=== PATIENT | female | born 2005 | race Caucasian/White ===

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

== ENCOUNTER 2024-06-14 17:03 | Emergency (ER) | payer BC ==
[2024-06-14] MEDS ORDERED: Sodium Chloride 0.9% 10 ML Syringe FLUSH PRN (17:28)
[2024-06-14] MEDS: Sodium Chloride 0.9% 1,000 ML IV SCH (17:45)
[2024-06-14] MEDS: Ketorolac 30 MG/ML SDV IVPUSH ONE (17:45)
[2024-06-14] MEDS: Ondansetron 4 MG/2 ML SDV IVPUSH ONE (17:45)
[2024-06-14] MEDS: cefTRIAXone 2 GM Vial IVPUSH ONE (18:03)
[2024-06-14 18:07] LABS: BASOPHILS PERCENT AUTO 0.4 % (0.0-1.0); EOSINOPHILS PERCENT AUTO 0.4 % (0.0-6.0); HEMATOCRIT 37.3 % (37.0-47.0); HEMOGLOBIN 11.7 gm/dl (12.0-16.0); IMMATURE GRAN ABSOLUTE AUTO 0.01 K/mm3 (0.00-0.05); IMMATURE GRAN PERCENT AUTO 0.1 % (0.0-0.4); LYMPHOCYTES PERCENT AUTO 14.7 % (24.0-44.0); MEAN CORPUSCULAR HEMOGLOBIN 23.6 pg (28.0-32.0); MEAN CORPUSCULAR HGB CONC 31.4 g/dl (32.0-36.0); MEAN CORPUSCULAR VOLUME 75.4 fl (83.0-99.0); MEAN PLATELET VOLUME 9.4 fl (9.4-12.3); MONOCYTES PERCENT AUTO 14.3 % (0.0-8.0); NEUTROPHILS ABSOLUTE AUTO 4.7 K/mm3 (1.8-7.7); NEUTROPHILS PERCENT AUTO 70.1 % (41.0-71.0); PLATELET COUNT,PLT 267 K/mm3 (150-400); RED BLOOD CELL COUNT 4.95 M/mm3 (4.10-5.30); WHITE BLOOD CELL COUNT,WBC 6.78 K/mm3 (3.9-11.3)
[2024-06-14 19:08] LABS: A/G RATIO 0.8 (1-2); ALBUMIN 3.5 g/dl (3.4-5.0); ANION GAP 14.1 (5-15); BILIRUBIN TOTAL 0.3 mg/dL (0.2-1.0); BUN/CREATININE RATIO 11.4 (14-18); C-REACTIVE PROTEIN 7.47 mg/dL (<0.30); CALCIUM 8.6 mg/dL (8.5-10.1); CREATININE 0.7 mg/dL (0.55-1.02); EST CRCL DRUG DOSING (CG) 109.78 mL/min; POTASSIUM,K 4.1 mEq/L (3.5-5.1); PROTEIN TOTAL,TP 8.1 g/dl (6.4-8.2)
[2024-06-14 19:42] VITALS: PULSE 84
[2024-06-14 20:07] VITALS: BP 102/66
== END 2024-06-14 20:20 | disposition home or self-care (01) ==
LOC: JD.ED 17:03
DX: J18.9 Pneumonia, unspecified organism (principal); E86.0 Dehydration; Z79.899 Other long term (current) drug therapy
CPT/HCPCS: 36415; 71045; 80053; 85025; 86140; 87428; 87651; 96361; 96374; 96375; 99285; J0696; J1885; J2405; J7030; 99284

== ENCOUNTER 2024-10-12 18:31 | Emergency (ER) | payer BC ==
[2024-10-12] MEDS ORDERED: Sodium Chloride 0.9% 10 ML Syringe FLUSH PRN (18:36)
[2024-10-12] MEDS: Ondansetron 4 MG/2 ML SDV IVPUSH ONE (18:46)
[2024-10-12 19:08] LABS: BASOPHILS ABSOLUTE AUTO 0.0 K/mm3 (0.0-0.2); BASOPHILS PERCENT AUTO 0.5 % (0.0-1.0); EOSINOPHILS ABSOLUTE AUTO 0.3 K/mm3 (0.0-0.4); EOSINOPHILS PERCENT AUTO 3.4 % (0.0-6.0); IMMATURE GRAN ABSOLUTE AUTO 0.02 K/mm3 (0.00-0.05); IMMATURE GRAN PERCENT AUTO 0.3 % (0.0-0.4); LYMPHOCYTES ABSOLUTE AUTO 2.6 K/mm3 (1.0-4.8); LYMPHOCYTES PERCENT AUTO 34.6 % (24.0-44.0); MEAN PLATELET VOLUME 9.5 fl (9.4-12.3); MONOCYTES ABSOLUTE AUTO 0.8 K/mm3 (0.0-0.8); MONOCYTES PERCENT AUTO 10.2 % (0.0-8.0); NEUTROPHILS ABSOLUTE AUTO 3.8 K/mm3 (1.8-7.7); NEUTROPHILS PERCENT AUTO 51.0 % (41.0-71.0); NRBC ABSOLUTE 0.00 (0.00-0.02); NRBC PERCENT 0.0 % (0.0-0.2); PLATELET COUNT,PLT 319 K/mm3 (150-400); RED BLOOD CELL COUNT 4.98 M/mm3 (4.10-5.30); WHITE BLOOD CELL COUNT,WBC 7.54 K/mm3 (3.9-11.3)
[2024-10-12 19:14] LABS: INR 1.06
[2024-10-12 19:15] LABS: PTT,PARTIAL THROMBOPLSTIN TIME 29.3 SECONDS (21.7-31.4)
[2024-10-12 19:24] LABS: A/G RATIO 1.1 (1-2); ALANINE AMINOTRANSFERASE,ALT 18 U/L (14-59); ASPARTATE AMNIOTRANSFERASE,AST 21 U/L (15-37); BILIRUBIN TOTAL 0.3 mg/dL (0.2-1.0); BLOOD UREA NITROGEN,BUN 6 mg/dL (7-18); CARBON DIOXIDE,CO2 23 mEq/L (21-32); CHLORIDE,CL 104 mEq/L (98-107); CREATININE 0.6 mg/dL (0.55-1.02); EST CRCL DRUG DOSING (CG) 144.23 mL/min; ESTIMATED GFR 131 mL/min (>60); GLUCOSE RANDOM 86 mg/dL (70-99); POTASSIUM,K 3.1 mEq/L (3.5-5.1); PROTEIN TOTAL,TP 7.9 g/dl (6.4-8.2); SODIUM,NA 140 mEq/L (136-145); TROPONIN I HIGH SENSITIVITY 4 pg/mL (<=51)
[2024-10-12 19:26] LABS: ETHANOL BLOOD MEDICAL 0.00 gm% (0.00)
[2024-10-12 20:11] LABS: IRON,FE 17 ug/dL (50-170)
[2024-10-12 20:14] LABS: APPEARANCE,URINE CLEAR (Clear); GLUCOSE,URINE NEGATIVE (Negative); OCCULT BLOOD,URINE NEGATIVE (Negative)
[2024-10-12 20:21] LABS: BUPRENORPHINE SCREEN,URINE NEGATIVE (CUTOFF=10); METHADONE SCREEN, URINE NEGATIVE (CUTOFF=200); METHAMPHETAMINES SCREEN, URINE NEGATIVE (CUTOFF=500); OXYCODONE SCREEN,URINE NEGATIVE (CUT0FF=100); THC SCREEN,URINE 20 NG/ML NEGATIVE (CUTOFF=50)
[2024-10-12] MEDS: Sodium Chloride 0.9% 10 ML Syringe FLUSH ONE (20:25)
[2024-10-12] MEDS: Iopamidol 612 MG/ML 100 ML Bottle IVPUSH ONE (20:25)
[2024-10-12 20:39] LABS: AMPHETAMINES SCREEN, URINE NEGATIVE (CUTOFF=500); EPITHELIAL CELLS,URINE 0-5 /hpf (0-5)
[2024-10-12] MEDS: Potassium Bicarbonate/Cit Ac 20 MEQ Effervescent Tab PO ONE (21:14)
[2024-10-12] MEDS: Lactated Ringers 1,000 ML IV ONE (21:42)
[2024-10-12] MEDS ORDERED: Naloxone 0.4 MG/ML SDV IVPUSH PRN (22:31)
[2024-10-12] MEDS: LORazepam 2 MG/ML SDV IVPUSH ONE (23:59)
[2024-10-13 00:24] VITALS: BP 104/64; PULSE 79
== END 2024-10-13 | disposition home or self-care (01) ==
LOC: JD.ED 18:31
DX: T67.01XA Heatstroke and sunstroke, initial encounter (principal); E86.0 Dehydration; Z79.899 Other long term (current) drug therapy
CPT/HCPCS: 36415; 70450; 71045; 74177; 80053; 80143; 80179; 80306; 80307; 81001; 83540; 83605; 83690; 83735; 84484; 84703; 85025; 85610; 85730; 86140; 93005; 96360; 96361; 96374; 99285; A9270; J2405; J7030; J7120; Q9967; 93010; 99284